=== PATIENT | female | born 1965 | race Caucasian/White ===

== ENCOUNTER 2024-07-26 14:51 | Inpatient (IN) | payer BC, SELFPAY ==
[2024-07-26] VITALS (7 sets, daily range): BP systolic 127–146; BP diastolic 87–128; PULSE 76–106; RESP 16–25; TEMP 35.6–36.6; O2SAT 95–98; BMI 26.0; BMI 29.2
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
--- NOTE | 2024-07-26 15:25 | EX.ED.VIS.PS ---
HPI HPI - Psych History of Present Illness Chief Complaint: Mental Health Informant: patient Onset/Context/Timing Onset: Month(s) Context: Gradual Onset Conflict: Family Timing: Continuous Worsened by: Situational factors Relieved by: Nothing Associated Symptoms Associated Symptoms - Psych: Positive for Depressed; Negative for Suicidal Thoughts Narrative Narrative: Patient presents with depression and alcohol intoxication that became worse today. Patient states she has been under a lot of stress and anxiety for the past several months. Patient states that she has been feeling depressed but denies any suicidal or homicidal ideations. Patient states that complex with her family have made things worse. Patient denies any chest pain or shortness of breath. Patient denies any nausea or vomiting. Patient admits to drinking alcohol today. [facility] Medical History (Updated 07/26/24 @ 17:[address] Willis Sorto DO) Lumbar disc disease Allergy/AdvReac Type Severity Reaction Status Date / Time No Known Allergies Allergy Verified 07/26/24 15:03 Surgical History no surgical history no surgical history Social History Smoking Status: Current every day smoker tobacco type: cigarettes ROS ROS ED Constitutional Constitutional ED: Denies chills or fever(s) Eyes Eyes: Denies blurry vision or change in vision ENT ENT ED: Denies rhinorrhea or sore throat Cardiovascular Cardiovascular: Denies chest pain or palpitations Respiratory/Chest Respiratory/Chest: Denies cough or dyspnea Gastrointestinal Gastrointestinal: Denies nausea or vomiting Genitourinary Genitourinary ED: Denies dysuria or hematuria Musculoskeletal Musculoskeletal: Denies back pain or neck pain Integumentary Denies abscess or rash Neurologic Neurologic: Denies headache(s) or weakness Psychiatric Psychiatric: Reports anxiety and depression Allergic/Immunologic Allergic/Immunologic ED: Denies mouth swelling or urticaria EXAM Physical Exam Const Vital Signs: 07/26/24 14:56 07/26/24 15:45 07/26/24 16:00 Temperature 96.0 F L Temperature Source Temporal Pulse Rate 84 76 84 Respiratory Rate 16 25 H 19 H Blood Pressure 140/128 H Blood Pressure Mean 132 Pulse Ox 96 Oxygen Delivery Method Room Air 07/26/24 17:00 Temperature Temperature Source Pulse Rate 79 Respiratory Rate 20 H Blood Pressure Blood Pressure Mean Pulse Ox Oxygen Delivery Method Positive well nourished and well developed General Appearance ED: well developed and NAD HEENT Reports moist mucous membranes Neck supple and no JVD Resp normal respiratory effort and clear to auscultation bilaterally Cardio Rate: regular rate Rhythm: regular rhythm Extremity normal to inspection General Extremety ED: Negative for edema or tenderness General Extremity: Negative for edema Neuro oriented x3, CN's II-XII intact bilaterally and no sensory deficits noted Hardin Coma Scale: document GCS findings Spontaneous Obeys Commands Oriented 15 Sensorium / Orientation: alert Motor Exam: strength 5/5 throughout Psych mental status grossly normal Activity / Motor Behavior: appropriate eye contact Speech: normal speech Mood & Affect: depressed and tearful Thought Content: No suicidality, No homicidality, No delusion(s) and No hallucination(s) MDM MDM MDM Narrative Medical decision making narrative: Differential diagnosis includes depression, anxiety, alcohol intoxication, alcohol dependence, electrolyte abnormality, hepatic injury, and pancreatitis. CBC will be obtained to assess for leukocytosis and anemia. Comprehensive metabolic profile will be obtained to assess for Paddock function, renal function, and electrolyte abnormality. Lipase will be obtained to assess for pancreatitis. Urinalysis will be obtained to assess for urinary tract infection and hematuria. Urine drug screen will be obtained to assess for substance abuse. Serum alcohol level will be obtained to assess for alcohol intoxication. Lab Data Attestation: I reviewed the patient's lab results. Lab results narrative: CBC was reviewed and was within normal limits. Comprehensive metabolic profile was reviewed and is essentially within normal limits. Lipase was reviewed and was normal at 56. Serum alcohol level was reviewed and was elevated at 367. Urinalysis was reviewed. There is no evidence of urinary tract infection or hematuria. Labs: Laboratory Results - last 24 hr 07/26/24 07/26/24 15:25 16:19 WBC 6.8 RBC 4.65 Hgb 15.0 Hct 44.3 MCV 95.3 MCH 32.3 H MCHC 33.9 RDW Std Deviation 46.4 H RDW Coeff of Marco A 13.2 Plt Count 291 MPV 9.4 Immature Gran % (Auto) 0.700 Neut % (Auto) 70.2 H Lymph % (Auto) 23.6 Fajardo % (Auto) 3.9 Eos % (Auto) 0.6 Baso % (Auto) 1.0 Absolute Neuts (auto) 4.7 Absolute Lymphs (auto) 1.59 Nucleated RBC % 0 Sodium 144 Potassium 3.6 Chloride 104 Carbon Dioxide 22.8 Anion Gap 17 H BUN 7 Creatinine 0.70 Estim Creat Clear Calc 90.61 Est GFR (MDRD) Non-Af 99 BUN/Creatinine Ratio 10.5 Glucose 103 H Calcium 9.4 Total Bilirubin 0.21 AST 29 ALT 18 Alkaline Phosphatase 112 H Total Protein 8.5 H Albumin 4.8 Globulin 3.7 Albumin/Globulin Ratio 1.3 Lipase 56 Urine Color Yellow Urine Clarity Clear Urine pH 6.5 Ur Specific [place] 1.005 Urine Protein 30 H Urine Glucose (UA) Normal Urine Ketones Negative Urine Occult Blood Negative Urine Nitrite Negative Urine Bilirubin Negative Urine Urobilinogen Normal Ur Leukocyte Esterase Negative Ethyl Alcohol 367.0 H* Management Discussion w/another healthcare provider: Hospitalist (Dr. Vega) and pull worker/Case management Treatment and Re-Evaluation Narrative: pull worker talk to the patient and stated that the patient is agreeable to be admitted to the hospital for alcohol detox. Patient is much more calm and cooperative on reevaluation. Case was discussed with the hospitalist for admission for detox. She will admit the patient to her service. Patient understood and was agreeable with plan. All questions were answered. Discharge Plan Triage Chief Complaint: Mental Health ED Provider: Willis Sorto Dx/Rx/DC Orders Clinical Impression: Alcohol dependence, Alcohol intoxication, Depression Primary Care Provider: Care Physician,No Primary Referrals: Care Physician,No Primary [Primary Care Provider] - Print Language: Kinyarwanda Disposition Disposition: Acute Care [facility]
[2024-07-26 15:40] LABS: Absolute Lymphocyte Count 1.59 X10^3/uL (0.83-4.51); Absolute Neutrophil Count 4.7 X10^3/uL (2.0-7.7); Basophil# 0.07 X10^3/uL; Eosinophil# 0.04 X10^3/uL; Eosinophils% 0.6 % (0-5); Hematocrit 44.3 % (37-47); Lymphocyte # 1.59 X10^3/ul (0.83-4.51); Lymphocyte % 23.6 % (19-41); Mean Corp Hgb Conc 33.9 g/dL (32-36); Mean Corpuscular Hgb 32.3 pg (27.0-32.0); Mean Corpuscular Volume 95.3 fL (81-99); Mean Platelet Vol. 9.4 fl (6.2-12.0); Monocyte# 0.26 X10^3/uL; Monocyte% 3.9 % (0-10); NRBC Flagged by Analyzer 0 % (0-5); Neutrophil # 4.74 X10^3/uL (2.7-7.7); Neutrophil % 70.2 % (47-70); Platelet Count 291 K/mm3 (150-450); RBC Distribution Width CV 13.2 % (11.6-14.6); RBC Distribution Width SD 46.4 fl (35.1-43.9); Red Blood Count 4.65 M/mm3 (4.2-5.4); White Blood Count 6.8 K/mm3 (4.4-11.0)
[2024-07-26 16:10] LABS: ALB/GLOB Ratio 1.3 RATIO (0.9-2.4); AST(SGOT) 29 U/L (<=31); Alanine Aminotransfer ALT/SGPT 18 U/L (<=34); Albumin, Serum 4.8 g/dL (3.4-4.8); Alkaline Phosphatase 112 U/L (35-104); Anion Gap 17 (5-15); BUN 7 mg/dL (4-19); BUN/Creat Ratio 10.5 RATIO (10-20); Calcium,Total 9.4 mg/dL (7.6-11.0); Carbon Dioxide 22.8 mmol/L (21.0-32.0); Chloride 104 mmol/L (98-108); EST Glomerular Filtration Rate 99 (>60); Estimated Creatinine Clearance 90.61 ml/min (50-250); Globulin 3.7 g/dL (2.2-4.2); Glucose 103 mg/dL (70-99); Lipase 56 U/L (13-75); Potassium 3.6 mmol/L (3.3-5.1); Protein, Total 8.5 g/dL (5.9-8.4); Sodium Level 144 mmol/L (133-145); Total Bilirubin 0.21 mg/dL (0.00-1.30)
[2024-07-26 16:36] LABS: Color, Urine Yellow (Yellow); Glucose, Dipstick Normal (Normal); Ketone-Dipstick Negative (Negative); Leukocyte Esterase-Dipstick Negative /ul (Negative); Nitrite-Dipstick Negative (Negative); Occult Blood-Urine Negative /ul (Negative); Protein-Dipstick 30 mg/dl (Negative); Specific Gravity, Urine 1.005 (1.002-1.030); Urine Bilirubin Dipstick Negative (Negative); Urine Clarity Clear (Clear); Urine Urobilinogen Normal (Normal); Urine pH 6.5 (5.0 - 8.0)
--- NOTE | 2024-07-26 17:00 | ED.RN ---
PT GAVE THIS NURSE PERMISSION TO SPEAK TO HER MOM. MOM CALLED TO GET AN UPDATE. MOM AWARE THAT PT WILL BE DOING THE DETOX PROGRAM BUT NEEDS TO BE COMPLIANT. EXPLAINED THAT IT IS A VOLUNTARY PROGRAM AND PT NEEDS TO AGREE TO THE PROGRAM.
--- NOTE | 2024-07-26 17:05 | HP.PCM.HOS_ITS ---
HPI - General General Date of Admission: 07/26/24 Date of Service: 07/26/24 Chief Complaint: alcohol intoxication HPI Narrative HUMZA BRYAN, is a 58 F with a PMH as outlined who presents via the ED on 07/26/2024 with a complaint of alcohol intoxication with risk, of withdrawal. She admitted to a lot of stress and anxiety in her life for several months now and says she also felt depressed. She denied any suicidal or homicidal ideation. She had been having family issues which exacerbated her drinking. She had no other complaints and sought help for detoxification and potential withdrawal. Her last drink was on the day of admission. She denies any shakes or tremors and denies any symptoms of withdrawal. She admits to smoking a few cigarettes daily. With her drinking she says she drinks at least 1/5 of vodka daily. Vitals in the ED were temperature of 96 Fahrenheit, pulse rate of 79 and respiratory rate of 20. She was saturating at 96% on room air. CBC and CMP were unremarkable. Serum alcohol level was 367. Urine tox was pending. She has been admitted to be managed for alcohol use disorder with risk of withdrawal. [facility] Medical History (Updated 07/26/24 @ 18:36 by Constance Soto) Alcohol abuse Anxiety Smoker Lumbar disc disease Home Medications ?Medication ?Instructions ?Recorded ?Last Taken ?Type bupropion HCl 150 mg tablet,12 hr 150 mg PO BID 07/25/24 History sustained-release gabapentin 400 mg capsule 800 mg PO TID 07/26/2407/26 History hydroxyzine pamoate 25 mg capsule 25 mg PO TID PRN itc h 07/26/24 Unknown History ibuprofen 200 mg tablet (Advil) 1,000 mg PO BID Unknown History rosuvastatin 10 mg tablet 10 mg PO QHS 07/26/24 History Allergy/AdvReac Type Severity Reaction Status Date / Time No Known Allergies Allergy Verified 07/26/24 15:03 Surgical History no surgical history Social History Smoking Status: Current every day smoker tobacco type: cigarettes ROS Constitutional Constitutional: Reports fatigue and malaise; Denies anorexia, chills, fever(s) or weakness Eyes Eyes: Denies change in vision ENT HEENT: Denies dysphagia, headache(s) or sore throat Cardiovascular Cardiovascular: Denies chest pain, dyspnea on exertion, edema, lightheadedness, orthopnea, palpitations, paroxysmal nocturnal dyspnea, rapid heart rate or syncope Respiratory/Chest Respiratory/Chest: Denies cough, dyspnea, shortness of breath at rest or shortness of breath with exertion Gastrointestinal Gastrointestinal: Denies abdominal pain, constipation, diarrhea, nausea or vomiting Genitourinary Genitourinary: Denies burning urination or dysuria Musculoskeletal Musculoskeletal: Denies arthralgias or back pain Neurologic Neurologic: Denies confusion, dizziness, focal weakness, headache(s), seizure- like activity, seizures, syncope, tingling or tremor(s) Psychiatric Psychiatric: Denies anxiety or depression Endocrine Endocrinology: Denies change in body appearance Vital Signs Vital Signs Vital Signs: 07/26/24 14:56 07/26/24 15:45 07/26/24 16:00 Temperature 96.0 F L Temperature Source Temporal Pulse Rate 84 76 84 Respiratory Rate 16 25 H 19 H Blood Pressure 140/128 H Blood Pressure Mean 132 Pulse Ox 96 Oxygen Delivery Method Room Air 07/26/24 17:00 Temperature Temperature Source Pulse Rate 79 Respiratory Rate 20 H Blood Pressure Blood Pressure Mean Pulse Ox Oxygen Delivery Method Weight Weight: 166 lb 7.184 oz Body Mass Index (BMI) 26.0 Physical Exam Const alert and oriented x3 Constitutional Narrative: looks depressed and anxious General Appearance: cooperative HEENT normocephalic, head/scalp atraumatic, hearing grossly normal bilaterally and moist oral mucous membranes Mouth: oral and palatal mucosa normal Eyes PERRL, EOMs intact bilaterally and conjunctivae normal Neck no lymphadenopathy and supple Resp normal respiratory effort, no retractions, no use of accessory muscles and clear to auscultation bilaterally Cardio regular rate, regular rhythm, S1 normal heart sound, S2 normal heart sound and no murmurs GI normal to inspection, nondistended, normoactive bowel sounds, soft to palpation, non-tender and non-distended Extremity normal to inspection, full ROM and no clubbing, cyanosis or edema Neuro oriented x3, CN's II-XII intact bilaterally, moves all extremities and no focal motor deficits Sensorium / Orientation: awake and alert Motor Exam: strength 5/5 throughout Psych Mood & Affect: depressed and anxious Results Lab / Micro Data 07/26/24 15:25 07/26/24 15:25 Labs: Laboratory Results - last 24 hr 07/26/24 15:25: WBC 6.8, RBC 4.65, Hgb 15.0, Hct 44.3, MCV 95.3, MCH 32.3 H, MCHC 33.9, RDW Std Deviation 46.4 H, RDW Coeff of Marco A 13.2, Plt Count 291, MPV 9.4, Immature Gran % (Auto) 0.700, Neut % (Auto) 70.2 H, Lymph % (Auto) 23.6, [place] % (Auto) 3.9, Eos % (Auto) 0.6, Baso % (Auto) 1.0, Absolute Neuts (auto) 4.7, Absolute Lymphs (auto) 1.59, Nucleated RBC % 0, Sodium 144, Potassium 3.6, Chloride 104, Carbon Dioxide 22.8, Anion Gap 17 H, BUN 7, Creatinine 0.70, Estim Creat Clear Calc 90.61, Est GFR (MDRD) Non-Af 99, BUN/Creatinine Ratio 10.5, G lucose 103 H, Calcium 9.4, Total Bilirubin 0.21, AST 29, ALT 18, Alkaline Phosphatase 112 H, Total Protein 8.5 H, Albumin 4.8, Globulin 3.7, Albumin/Globulin Ratio 1.3, Lipase 56, Ethyl Alcohol 367.0 H* 07/26/24 16:19: Urine Color Yellow, Urine Clarity Clear, Urine pH 6.5, Ur Specific [place] 1.005, Urine Protein 30 H, Urine Glucose (UA) Normal, Urine Ketones Negative, Urine Occult Blood Negative, Urine Nitrite Negative, Urine Bilirubin Negative, Urine Urobilinogen Normal, Ur Leukocyte Esterase Negative Assessment & Plan Assessment/Plan (1) Alcohol intoxication: PLAN: Plan #Acute alcohol intoxication with risk of withdrawal * has a history of chronic alcohol abuse, with serum alcohol level of 367. * admit to med surg. * Start on alcohol withdrawal protocol with phenobarbital. * PO thiamine, folic acid and multivite. * adjunctive meds for symptomatic relief. * #Nicotine dependence: Says she smokes a few cigarettes daily. Counseled to quit. Nicotine patch 21mg daily. #Depression and anxiety: on bupropion. #Hyperlipidemia: on rosuvasatin. DVT prophylaxis: low risk. Encourage ambulation Charges/Coding Visit Charges Inpatient E&M: 88254 Init Hosp L3
[2024-07-26 17:27] LABS: Mucous, Urine RARE /hpf (<or=2+); Red Blood Cells-Urine 0-5 SEEN /hpf (0-5); Squamous Epithelial Cells - UA 0-5 SEEN /hpf (5-10)
[2024-07-26 17:28] LABS: Bacteria RARE /hpf (None Seen); White Blood Cells 0-5 SEEN /hpf (0-5)
[2024-07-26 17:37] LABS: Amphetamine Urine NEGATIVE (<1000 ng/mL); Barbiturate Urine NEGATIVE (< 200 ng/mL); Benzodiazepine Urine NEGATIVE (< 200 ng/mL); Buprenorphine Urine NEGATIVE (< 200 ng/mL); Cocaine Urine NEGATIVE (< 300 ng/mL); Fentanyl, Urine NEGATIVE; Methadone Urine NEGATIVE (< 300 ng/mL); Opiates Urine NEGATIVE (< 300 ng/mL); Oxycodone, Urine NEGATIVE (< 100 ng/mL); PCP Urine NEGATIVE (< 25 ng/mL); THC Urine NEGATIVE (< 50 ng/mL)
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
[2024-07-26] MEDS: hydrOXYzine PAM 25 MG Capsule 50 MG PO (18:56)
[2024-07-26] MEDS: Phenobarbital 32.4 MG Tablet 64.8 MG PO ×2 (18:56→22:53)
[2024-07-26] MEDS: Ondansetron 4 MG/2 ML Vial IV (22:13)
[2024-07-26] MEDS: 0.9% Saline Lock 10 ML Syringe IV (22:14)
[2024-07-26] MEDS: buPROPion (SR) 150 MG Tablet.SA PO (22:53)
[2024-07-26] MEDS: Gabapentin 400 MG Capsule 800 MG PO (22:53)
[2024-07-26] MEDS: Atorvastatin Calcium 20 MG Tablet PO (22:53)
[2024-07-26] MEDS: traZODone 100 MG Tablet PO (22:53)
[2024-07-26] MEDS: Ibuprofen 400 MG Tablet 800 MG PO (22:53)
[2024-07-27] VITALS (8 sets, daily range): BP systolic 110–144; BP diastolic 56–82; PULSE 80–107; RESP 16–17; TEMP 36.6–37.3; O2SAT 84–98
[2024-07-27] MEDS: Phenobarbital 32.4 MG Tablet 64.8 MG PO ×6 (02:53→22:17)
[2024-07-27] MEDS: Gabapentin 400 MG Capsule 800 MG PO ×3 (06:26→22:17)
[2024-07-27] MEDS: Ibuprofen 400 MG Tablet 800 MG PO ×2 (09:02→22:17)
[2024-07-27] MEDS: buPROPion (SR) 150 MG Tablet.SA PO ×2 (09:14→22:16)
[2024-07-27] MEDS: Thiamine Hydrochloride 100 MG Tablet PO (09:14)
[2024-07-27] MEDS: Folic Acid 1 MG Tablet PO (09:14)
--- NOTE | 2024-07-27 09:22 | NURSING ---
Pt was in a deep sleep when this RN tested her spo2. Fingers warm. Spo2 was 84-85% on RA while sleeping. PT aroused with voice stimuli and spo2 up to 94% on RA but within a min, pt back to sleep. O2 2L via [place] applied and spo2 95%. Will continue to monitor.
--- NOTE | 2024-07-27 09:32 | PN_ITS ---
Subjective Subjective Patient seen and examined. She was lying comfortably in bed. She had no active complaints. Review of systems is otherwise negative. Objective Data Objective Data Vital Signs: Vital Signs Temp Pulse Resp BP Pulse Ox O2 Del Method O2 Flow Rate 98.2 F 103 H 17 144/82 H 95 Nasal Cannula 2 07/27/24 08:58 07/27/24 09:26 07/27/24 08:58 07/27/24 08:58 07/27/24 09:26 07/27/24 09:26 07/27/24 09:26 Oxygen Flow Rate (L/min) 2 Oxygen Delivery Method Nasal Cannula Weight: 159 lb 13.362 oz Body Mass Index (BMI) 29.2 Intake & Output: Intake and Output for Last 24 Hours 07/25/24 07/26/24 07/27/24 23:59 23:59 23:59 Intake Total 200 / 200 350 / 350 Balance 200 / 200 350 / 350 Lab / Micro Data 07/26/24 15:25 07/26/24 15:25 Labs: Laboratory Results - last 24 hr 07/26/24 15:25: WBC 6.8, RBC 4.65, Hgb 15.0, Hct 44.3, MCV 95.3, MCH 32.3 H, MCHC 33.9, RDW Std Deviation 46.4 H, RDW Coeff of Marco A 13.2, Plt Count 291, MPV 9.4, Immature Gran % (Auto) 0.700, Neut % (Auto) 70.2 H, Lymph % (Auto) 23.6, Bennett % (Auto) 3.9, Eos % (Auto) 0.6, Baso % (Auto) 1.0, Absolute Neuts (auto) 4.7, Absolute Lymphs (auto) 1.59, Nucleated RBC % 0, Sodium 144, Potassium 3.6, Chloride 104, Carbon Dioxide 22.8, Anion Gap 17 H, BUN 7, Creatinine 0.70, Estim Creat Clear Calc 90.61, Est GFR (MDRD) Non-Af 99, BUN/Creatinine Ratio 10.5, G lucose 103 H, Calcium 9.4, Total Bilirubin 0.21, AST 29, ALT 18, Alkaline Phosphatase 112 H, Total Protein 8.5 H, Albumin 4.8, Globulin 3.7, Albumin/Globulin Ratio 1.3, Lipase 56, Ethyl Alcohol 367.0 H* 03/20/25 16:19: Urine Color Yellow, Urine Clarity Clear, Urine pH 6.5, Ur Specific [place] 1.005, Urine Protein 30 H, Urine Glucose (UA) Normal, Urine Ketones Negative, Urine Occult Blood Negative, Urine Nitrite Negative, Urine Bilirubin Negative, Urine Urobilinogen Normal, Ur Leukocyte Esterase Negative, Urine RBC 0-5 SEEN, Urine WBC 0-5 SEEN, Ur Squamous Epith Cells 0-5 SEEN, Urine Bacteria RARE, Urine Mucus RARE, Urine Opiates Screen NEGATIVE, U Buprenorphine Qual NEGATIVE, Ur Oxycodone Screen NEGATIVE, Urine Methadone Screen NEGATIVE, Urine Fentanyl Screen NEGATIVE, Ur Barbiturates Screen NEGATIVE, Ur Phencyclidine Scrn NEGATIVE, Ur Amphetamines Screen NEGATIVE, U Benzodiazepines Scrn NEGATIVE, Urine Cocaine Screen NEGATIVE, U Cannabinoids Screen NEGATIVE Physical Exam Const alert, oriented x3 and no apparent distress General Appearance: cooperative HEENT normocephalic, head/scalp atraumatic, hearing grossly normal bilaterally and moist oral mucous membranes Eyes PERRL, EOMs intact bilaterally and conjunctivae normal Neck no lymphadenopathy and supple Resp normal respiratory effort, no retractions, no use of accessory muscles and clear to auscultation bilaterally Cardio regular rate, regular rhythm, S1 normal heart sound, S2 normal heart sound and no murmurs GI normal to inspection, nondistended, normoactive bowel sounds, soft to palpation, non-tender and non-distended Extremity normal to inspection, full ROM and no clubbing, cyanosis or edema General Extremity: no tenderness to palpation of joints or extremities Skin General Skin Exam: no breakdown Neuro oriented x3, CN's II-XII intact bilaterally, moves all extremities and no focal motor deficits Sensorium / Orientation: awake and alert Motor Exam: strength 5/5 throughout Psych affect normal Appearance: appropriate Assessment & Plan Assessment/Plan (1) Alcohol intoxication: PLAN: Plan #Acute alcohol intoxication with risk of withdrawal * has a history of chronic alcohol abuse, with serum alcohol level of 367. * on alcohol withdrawal protocol with phenobarbital. * PO thiamine, folic acid and multivite. * adjunctive meds for symptomatic relief. * #Nicotine dependence: Says she smokes a few cigarettes daily. Counseled to quit. Nicotine patch 21mg daily. #Depression and anxiety: on bupropion. #Hyperlipidemia: on rosuvasatin. DVT prophylaxis: low risk. Encourage ambulation Charges/Coding Visit Charges Inpatient E&M: 13448 Subs Hosp L2
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
--- NOTE | 2024-07-27 13:36 | ADDICTION ---
Met with patient to complete RAMP assessments. Pt reports that she would like to stop drinking completely but tends to get anxiety when she tries. She reports that she is willing to follow up with [facility] tx. This worker screened pt for Vivitrol at discharge to help with cravings as well as referred to [facility] in [place] for follow up outpatient tx.
[2024-07-27] MEDS: Atorvastatin Calcium 20 MG Tablet PO (22:17)
[2024-07-28] MEDS: Phenobarbital 32.4 MG Tablet 64.8 MG PO ×6 (03:00→21:51)
[2024-07-28] MEDS: Gabapentin 400 MG Capsule 800 MG PO ×3 (06:21→21:51)
[2024-07-28 06:23] VITALS: BP 121/76; PULSE 87; RESP 16; TEMP 37.2; O2SAT 96
[2024-07-28] MEDS: Thiamine Hydrochloride 100 MG Tablet PO (07:36)
[2024-07-28] MEDS: Folic Acid 1 MG Tablet PO (07:36)
[2024-07-28] MEDS: buPROPion (SR) 150 MG Tablet.SA PO ×2 (09:17→21:55)
[2024-07-28] MEDS: Ibuprofen 400 MG Tablet 800 MG PO ×2 (09:17→21:51)
[2024-07-28 10:19] VITALS: BP 129/96; PULSE 95; RESP 16; TEMP 36.6; O2SAT 97
--- NOTE | 2024-07-28 11:20 | PCM.PN.HOSP ---
Subjective Subjective Doing well, no issues overnight. CIWA score 1 Objective Data Objective Data Vital Signs: Vital Signs Temp Pulse Resp BP Pulse Ox O2 Del Method O2 Flow Rate 98.9 F 87 16 121/76 H 96 Room Air 2 07/28/24 06:23 07/28/24 06:23 07/28/24 06:23 07/28/24 06:23 07/28/24 06:23 07/28/24 07:17 07/27/24 15:00 Oxygen Flow Rate (L/min) 2 Oxygen Delivery Method Room Air Weight: 159 lb 13.362 oz Body Mass Index (BMI) 29.2 Intake & Output: Intake and Output for Last 24 Hours 07/27/24 07/28/24 07/29/24 03:59 03:59 03:59 Intake Total 200 / 200 1999 / 1999 300 / 300 Balance 200 / 200 1999 / 1999 300 / 300 Lab / Micro Data 07/26/24 15:25 07/26/24 15:25 Physical Exam Narrative General: Alert, Oriented x3, Cooperative, No apparent distress HEENT: Atraumatic, PERRLA, EOMI, Normocephalic Oral: Moist Mucosa Neck: Supple, No JVD Lungs: Diminished, Normal air movement, No rhonchi, No wheeze, No rales Cardiovascular: Regular rate, Regular Rhythm, Normal S1, Normal S2, No murmurs Abdomen: Soft, Non Tender, Non-Distended, No Hepato-splenomegaly Extremities: No edema, Capillary Refill Less than 3 Seconds Skin: No rashes, No breakdown Musculoskeletal: No Tenderness to Palpation of Joints or Extremities Neurological: No focal neurological deficits, Motor Exam 5/5 strength throughout, Sensory exam intact to light touch and pain Psych/Mental Status: Normal Affect, Appropriate Assessment & Plan Assessment/Plan (1) Alcohol intoxication: PLAN: Plan 1. Acute alcohol withdrawal/tobacco abuse/anxiety/depression ? Continue with the alcohol withdrawal protocol ? She is going to follow-up as an outpatient in [place] [facility] ? Will plan for Vivitrol tomorrow prior to discharge ? Continue with nicotine patch, encourage cessation ? Continue with her home Wellbutrin 2. Hyperlipidemia ? Stabilized ? Continue with Crestor DVT: Ambulation Charges/Coding Visit Charges Inpatient E&M: 83964 Subs Hosp L2
[2024-07-28 13:40] VITALS: BP 134/88; PULSE 90; RESP 16; TEMP 36.6; O2SAT 99
[2024-07-28] MEDS: Atorvastatin Calcium 20 MG Tablet PO (21:51)
[2024-07-28 22:19] VITALS: BP 117/76; PULSE 98; RESP 16; TEMP 36.7; O2SAT 95
[2024-07-29] MEDS: Phenobarbital 32.4 MG Tablet 64.8 MG PO ×2 (02:38→08:26)
[2024-07-29 04:00] VITALS: BP 122/74; PULSE 82; RESP 16; TEMP 37; O2SAT 97
[2024-07-29] MEDS: Gabapentin 400 MG Capsule 800 MG PO (06:23)
--- NOTE | 2024-07-29 07:26 | PCM.DC ---
Discharge Instructions Diet Discharge Diet: Low fat / Low cholesterol DC O2, CPAP, BIPAP needs Home O2 Discharge instructions: No Dressing / Incision Discharge Activity: Return to Normal Activity Dressing / Incision Call your doctor if you observe: Fever of 101 or Higher, Shortness of breath, Dizziness, Fainting spells, Swelling in the ankles, Chest pain and Increased palpitations (irregular heartbeat) Follow Up Care Test Results: Test results from this visit will be discussed in further detail at your follow-up appointment, if applicable. Discharge Plan Admission Admit Date/Time: 07/26/24 17:17 Attending Provider: Jeffery Alva Primary Care Provider: Sandrine Lynch,Carol Ann Primary Consulting Providers: Jennifer Vega Discharge Orders/Prescriptions Prescriptions: Continued bupropion HCl 150 mg tablet sustained-release 12 hr 150 mg PO BID gabapentin 400 mg capsule 800 mg PO TID hydroxyzine pamoate 25 mg capsule 25 mg PO TID PRN (Reason: itch) rosuvastatin 10 mg tablet 10 mg PO QHS ibuprofen [Advil] 200 mg tablet 1,000 mg PO BID Referrals / Follow Up: Care Physician,No Primary [Primary Care Provider] - Disposition Disposition (needs filled in before D/C Order can be placed): Home, Self Care
[2024-07-29 08:16] VITALS: BP 146/90; PULSE 86; RESP 16; TEMP 36.7; O2SAT 96
[2024-07-29] MEDS: Thiamine Hydrochloride 100 MG Tablet PO (08:27)
[2024-07-29] MEDS: Folic Acid 1 MG Tablet PO (08:27)
[2024-07-29] MEDS: Naltrexone Microspheres 380 MG SYRINGE IM (09:59)
[2024-07-29] MEDS: Vivitrol ID Card 1 EACH MC (10:00)
[2024-07-29] MEDS: Vivitrol Administration Needles 1 EACH MC (10:00)
[2024-07-29] MEDS: buPROPion (SR) 150 MG Tablet.SA PO (10:01)
[2024-07-29] MEDS: Ibuprofen 400 MG Tablet 800 MG PO (10:02)
--- NOTE | 2024-07-29 13:42 | PCM.DC.SUM ---
Providers Date of Admission: 07/26/24 Primary Care Physician: No Primary Care Phys Reason For Visit: ACUTE ALCOHOL INTOXICATION RISK OF WITHDRAWAL Diagnosis Discharge Diagnosis (1) Alcohol intoxication: Status: Acute Code(s): F10.929 - Alcohol use, unspecified with intoxication, unspecified Plan 1 Medications at Discharge Home Medications bupropion HCl 150 mg tablet,12 hr sustained-release 150 mg PO BID 07/26/24 gabapentin 400 mg capsule 800 mg PO TID 07/26/24 hydroxyzine pamoate 25 mg capsule 25 mg PO TID PRN itch 07/26/24 ibuprofen 200 mg tablet (Advil) 1,000 mg PO BID 07/26/24 rosuvastatin 10 mg tablet 10 mg PO QHS 07/26/24 Hospital Course Operations None Procedures None Summary of Care Provided Minutes Spent on Discharge: 34 Hospital Course: Per HPI: HUMZA BRYAN, is a 58 F with a PMH as outlined who presents via the ED on 07/26/2024 with a complaint of alcohol intoxication with risk, of withdrawal. She admitted to a lot of stress and anxiety in her life for several months now and says she also felt depressed. She denied any suicidal or homicidal ideation. She had been having family issues which exacerbated her drinking. She had no other complaints and sought help for detoxification and potential withdrawal. Her last drink was on the day of admission. She denies any shakes or tremors and denies any symptoms of withdrawal. She admits to smoking a few cigarettes daily. With her drinking she says she drinks at least 1/5 of vodka daily. Vitals in the ED were temperature of 96 Fahrenheit, pulse rate of 79 and respiratory rate of 20. She was saturating at 96% on room air. CBC and CMP were unremarkable. Serum alcohol level was 367. Urine tox was pending. She has been admitted to be managed for alcohol use disorder with risk of withdrawal. Hospital Course: 1. Acute alcohol withdrawal/tobacco abuse/anxiety/depression?58-year-old female presented to the hospital requesting detox from alcohol. She did tolerate the withdrawal protocol very well and today, the day of discharge, had a CIWA score of 0. She was evaluated by 180 who recommended Vivitrol on discharge which was provided today. I discussed with her that the plan for discharge and she expressed understanding of the risks and benefits of going home and would like to go today. Her home Wellbutrin is well as hydroxyzine and gabapentin were continued on discharge. Will also resume her Crestor. Physical Exam Narrative General: Alert, Oriented x3, Cooperative, No apparent distress HEENT: Atraumatic, PERRLA, EOMI, Normocephalic Oral: Moist Mucosa Neck: Supple, No JVD Lungs: Diminished, Normal air movement, No rhonchi, No wheeze, No rales Cardiovascular: Regular rate, Regular Rhythm, Normal S1, Normal S2, No murmurs Abdomen: Soft, Non Tender, Non-Distended, No Hepato-splenomegaly Extremities: No edema, Capillary Refill Less than 3 Seconds Skin: No rashes, No breakdown Musculoskeletal: No Tenderness to Palpation of Joints or Extremities Neurological: No focal neurological deficits, Motor Exam 5/5 strength throughout, Sensory exam intact to light touch and pain Psych/Mental Status: Normal Affect, Appropriate Weight / BMI Weight Weight: 159 lb 13.362 oz Body Mass Index (BMI) 29.2 ABG / Lab / Microbiology Data 07/26/24 15:25 07/26/24 15:25 D/C Instructions Discharge Diet: Low fat / Low cholesterol Call your doctor if you observe: Fever of 101 or Higher, Shortness of breath, Dizziness, Fainting spells, Swelling in the ankles, Chest pain and Increased palpitations (irregular heartbeat) DC O2, CPAP, BIPAP Needs Home O2 Discharge instructions: No Meaningful Use Info Meaningful Use Meaningful Use Diagnoses (Choose all that apply): None applicable Ischemic Stroke Statin Dosing Therapy Reference: STATIN DOSE THERAPY REFERENCE: * Patients > 75 years receive moderate or high dose statin therapy. * Patients 75 years or YOUNGER should receive HIGH intensity statin dose unless contraindicated. You will be required to document reason for non-treatment if statin daily dose does not meet guidelines. HIGH DOSE STATIN THERAPY DAILY Atorvastatin > than or = to 40 mg Rosuvastatin > than or = to 20 mg Amlodipine + Atorvastatin > than or = to 2.5/40 mg Ezetimibe + Simvastatin 10/80 mg Simvastatin 80mg Discharge Plan Admission Admit Date/Time: 07/26/24 17:17 Attending Provider: Jeffery Alva Primary Care Provider: Care Physician,No Primary Consulting Providers: Jennifer Vega Discharge Orders/Prescriptions Prescriptions: Continued bupropion HCl 150 mg tablet sustained-release 12 hr 150 mg PO BID gabapentin 400 mg capsule 800 mg PO TID hydroxyzine pamoate 25 mg capsule 25 mg PO TID PRN (Reason: itch) rosuvastatin 10 mg tablet 10 mg PO QHS ibuprofen [Advil] 200 mg tablet 1,000 mg PO BID Referrals / Follow Up: Care Physician,No Primary [Primary Care Provider] - Disposition Disposition (needs filled in before D/C Order can be placed): Home, Self Care Charges/Coding Visit Charges Inpatient E&M: 89715 Disch Hosp >30min
== END 2024-07-29 10:35 | disposition home or self-care (01) | DRG 897 ==
LOC: ED 17:11 → MS3 18:20
PROVIDERS: Admitting Provider Student in an Organized Health Care Education/Training Program; Emergency Provider Emergency Medicine; Visit Provider Family Medicine
DX: F10.229 Alcohol dependence with intoxication, unspecified (principal); E78.5 Hyperlipidemia, unspecified; F32.A Depression, unspecified; F17.210 Nicotine dependence, cigarettes, uncomplicated; F41.9 Anxiety disorder, unspecified; Z63.8 Other specified problems related to primary support group; Y90.0 Blood alcohol level of less than 20 mg/100 ml; Z79.02 Long term (current) use of antithrombotics/antiplatelets; Z79.899 Other long term (current) drug therapy
CPT/HCPCS: 80053; 80307; 81001; 82077; 83690; 85025; 99285; 99406; A4216; J2405